=== PATIENT | male | born 1955 | race Asian ===

== ENCOUNTER 2025-02-15 20:33 | Emergency (ER) | payer OTHER ==
[2025-02-15 20:42] VITALS: BP 139/74; PULSE 80; RESP 18; TEMP 97.8; BMI 28.0
== END 2025-02-15 20:50 | disposition left against medical advice (07) ==
LOC: JER 20:33
DX: Z53.21 Procedure and treatment not carried out due to patient leaving prior to being seen by health care provider (principal)
CPT/HCPCS: 93005; 93010; 99281-25